=== PATIENT | female | born 1975 | race African-American/Black ===

== ENCOUNTER 2018-01-19 00:32 | Emergency (ER) | payer OTHER ==
[~2018-01-19] VITALS: Ht 170.2 cm; Wt 90.7 kg
[~2018-01-19 00:32] MED LIST: LISINOPRIL10 MG PO; NORFLEX100 MG PO; ZANTAC 150MG T150 MG PO
== END 2018-01-19 02:22 | disposition home or self-care (01) ==
LOC: ER 00:32
DX: J06.9 Acute upper respiratory infection, unspecified (principal); J38.5 Laryngeal spasm; I10 Essential (primary) hypertension; K21.9 Gastro-esophageal reflux disease without esophagitis; Z90.49 Acquired absence of other specified parts of digestive tract; Z88.5 Allergy status to narcotic agent

== ENCOUNTER 2018-11-01 23:20 | Emergency (ER) | payer OTHER ==
[~2018-11-01] VITALS: Ht 170.2 cm; Wt 90.7 kg
--- NOTE | ~2018-11-01 | EKG ---
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
--- NOTE | ~2018-11-01 | EKG ---
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
[2018-11-01 23:58] LABS: ABSOLUTE NEUTROPHILS 5.6 thou/uL (1.4-8.2); BASOPHILS 0.8 % (0.0-2.0); EOSINOPHILS 3.9 % (0.0-3.0); HEMATOCRIT 42.5 % (37.0-47.0); HEMOGLOBIN 14.2 gm/dL (12.0-15.0); LYMPHOCYTES 28.3 % (24.0-44.0); MCH 27.5 pg (26.0-34.0); MCHC 33.3 g/dL (28.0-37.0); MCV 82.5 fL (80.0-100.0); MONOCYTES 7.9 % (1.0-8.0); PLATELET COUNT 387 thou/uL (150-400); POLYS 59.1 % (36.0-66.0); RBC 5.15 mil/uL (4.20-5.00); RDW 14.2 % (10.5-14.5); WBC 9.5 thou/uL (4.0-11.0)
[2018-11-02 00:04] LABS: ANION GAP 8 mmol/L (7-16); BUN 15 mg/dL (7-18); CALCIUM 10.1 mg/dL (8.5-10.1); CHLORIDE 101 mmol/L (98-107); CO2 25 mmol/L (21-32); GLUCOSE 96 mg/dL (74-106); POTASSIUM 3.5 mmol/L (3.5-5.1); SODIUM 134 mmol/L (136-145)
[2018-11-02 00:13] LABS: ALBUMIN 3.6 g/dL (3.4-5.0); SGOT 17 U/L (15-37); SGPT 27 U/L (30-65); TOTAL BILIRUBIN 0.2 mg/dL (<0.1-1.0); TOTAL PROTEIN 8.3 g/dL (6.4-8.2); TROPONIN-I <0.06 ng/mL (<0.06)
[2018-11-02] MEDS ORDERED: ZOFRAN ODT4 MG PO (01:06)
[2018-11-02 01:34] VITALS: BP 167/110
== END 2018-11-02 01:35 | disposition home or self-care (01) ==
LOC: ER 23:20
PROVIDERS: Emergency Medicine
DX: K21.9 Gastro-esophageal reflux disease without esophagitis (principal); I10 Essential (primary) hypertension; Z88.5 Allergy status to narcotic agent; Z90.49 Acquired absence of other specified parts of digestive tract